=== PATIENT | female | born 1970 | race Two or more races ===

== ENCOUNTER 2018-07-16 12:44 | Emergency (ER) | payer OTHER ==
[~2018-07-16] VITALS: Ht 172.7 cm; Wt 59.9 kg
[2018-07-16] MEDS ORDERED: AMBIEN10 MG (13:08)
[2018-07-16] MEDS ORDERED: DESIREL (13:09)
[2018-07-16] MEDS ORDERED: CLONAZEPAM0.5 M1 (13:09)
[2018-07-16] MEDS ORDERED: SINGULAIR10 MG (13:10)
[2018-07-16] MEDS ORDERED: CLARINEX2.5 MG/5 M PO (13:10)
[2018-07-16] MEDS ORDERED: PREVACID30 MG (13:10)
[2018-07-16] MEDS ORDERED: QVAR8.7 G1 PO (13:11)
[2018-07-16] MEDS ORDERED: DYMISTA NASAL S23 GM (13:12)
== END 2018-07-16 14:24 | disposition home or self-care (01) ==
LOC: ER 12:44
DX: J04.0 Acute laryngitis (principal)